=== PATIENT | female | born 1975 | race Caucasian/White ===

== ENCOUNTER 2020-03-20 12:58 | Outpatient (CLI) | payer BC, SELFPAY ==
--- NOTE | 2020-03-20 13:13 | XR_ITS ---
WS: [id number] LUMBAR SPINE TECHNIQUE: 3 views of the lumbar spine CLINICAL INFORMATION: LBP COMPARISON: None. FINDINGS: Mild lumbar curve convex left. No acute appearing compression fractures. Disc space size vertebral selena dy heights are well preserved. Minimal disc space narrowing L4-L5 and L5-S1. Mild facet arthropathy L 5-S1. XR/XR lumbar spine 2-3V* [id number] IMPRESSION: 1. Mild lumbar curve convex left. No acute appearing compression fractures. 2. Mild disc space narrowing L4-L5 and L5-S1. 3. Mild facet arthropathy L4-L5 and L5-S1.
== END 2020-03-20 12:59 | disposition home or self-care (01) ==
LOC: RADWPI 13:11
PROVIDERS: PCP Family Medicine; Visit Provider Chiropractor
DX: M47.817 Spondylosis without myelopathy or radiculopathy, lumbosacral region (principal); M47.816 Spondylosis without myelopathy or radiculopathy, lumbar region
CPT/HCPCS: 72100